=== PATIENT | male | born 1950 | race Caucasian/White ===

== ENCOUNTER 2020-01-22 14:59 | Inpatient (IN) | payer MEDICARE, OTHER ==
[2020-01-22 15:45] LABS: #Basophils 0.1 thou/uL (0.0-0.2); #Eosinphils 0.2 thou/uL (0.0-0.7); #Lymphocytes 1.9 thou/uL (1.20-3.40); #Monocytes 0.6 thou/uL (0.11-0.59); #Neutrophils 5.8 thou/uL (1.40-6.50); %Basophils 0.9 % (0.0-1.0); %Eosinophils 2.7 % (0.0-10.0); %Lymphocytes 21.8 % (21.0-51.0); %Neutrophils 67.6 % (42.0-75.0); Mean Corpuscular Volume 84.4 fL (78.0-98.0); Platelet Count 449 thou/uL (130-400); RBC Distribution Width 13.2 % (11.5-14.5); White Blood Cell (WBC) Count 8.6 thou/uL (4.8-10.8)
--- NOTE | 2020-01-22 15:46 | RAD ---
3 views lumbar spine: 01/22/2020 COMPARISON: None HISTORY: Back pain, prior surgery FINDINGS: There are cutaneous huong present. Multilevel posterior fusion hardware is noted with jazmin ateral pedicle screws present at the L2, L3, and L4 levels. There are S1 pedicle screws present and bilateral screws overlie bilateral sacroiliac joints. There appears to be and L5 pedicle screw on the left and a partially absent L5 pedicle screw on the right. There is multilevel disc space narrowing with degenerative endplate change. No evidence for hardware failure. No acute fracture is s een. Multilevel lower lumbar spine facet hypertrophic change. IMPRESSION: Multilevel postoperative and degenerative change within the lumbar spine as detailed nolan carroll
[2020-01-22 15:47] LABS: Bilirubin Negative (Negative); Blood, Urine Negative (Negative); Clarity Clear (Clear); Glucose, Urine (Dipstick) Normal (Negative); Ketone, Urine Negative (Negative); Leukocyte Negative Leu/uL (Negative); Nitrite Negative (Negative); Protein, Urine (Dipstick) Negative (Neg-Trace); Specific Gravity, Urine 1.018 (1.002-1.036); Urobilinogen Normal mg/dL (Less than 2)
[2020-01-22] MEDS ORDERED: Morphine 4 MG/ML VIAL ONE (15:51)
[2020-01-22] MEDS ORDERED: Ketorolac Tromethamine 30 MG/ML VIAL ONE (15:51)
[2020-01-22 15:59] LABS: ALT (SGPT) 15 U/L (8-55); AST (SGOT) 26 U/L (5-34); Albumin 3.6 g/dL (3.4-4.8); Alkaline Phosphatase 157 U/L (40-110); Anion Gap 13 mmol/L (10-20); BUN (Urea Nitrogen) 19 mg/dL (8.4-25.7); Bilirubin, Total 0.2 mg/dL (0.2-1.2); Calc. Creatinine Clearance 0 mL/min (70-130); Calcium 9.5 mg/dL (7.8-10.44); Carbon Dioxide 28 mmol/L (23-31); Chloride 101 mmol/L (98-107); Estimated GFR-MDRD 78; Glucose 125 mg/dL (80-115); Potassium 4.2 mmol/L (3.5-5.1); Protein, Total 6.6 g/dL (5.8-8.1); Sodium 138 mmol/L (136-145)
[2020-01-22] MEDS ORDERED: Lorazepam 2 MG/ML VIAL ONE (16:39)
--- NOTE | 2020-01-22 17:30 | PDOC.HHP ---
Hospitalist HPI - History of Present Illness Back pain History of Present Illness: PCP: Dr. Abelino Marshall The patient is a 69-year-old male with a past medical history significant for chronic back pain, CAD and Parkinson's disease that presents to the emergency department via EMS for the above complaint. The patient underwent back surgery revision for broken rods in his lumbar spine on 01/05/[address] Law with [facility] in [facility]. Then, he began inpatient rehab with [facility] on 01/14/20. The patient thought his rehab was going well, so he requested early discharge on Friday01/19/2020. The rehabilitation center recommended that he stay for approximately 1 to 2 weeks, however, the patient wanted to go home because of the holidays and he was feeling pretty good. The patient discharged with prescriptions for OxyContin, methocarbamol, and gabapentin for pain control. His spouse reports the day of discharge, the physical therapist worked him out "really, really hard". Then, he had to spend an hour in the car to drive home. His spouse believes this was very hard on him and basically wore him out. Also, she had to ration his pain medications because "they did not give me enough to last more than a couple of days". Therefore, he has gone 12 hours between doses for pain control.Since discharge, the patient has become more weak, so much so that he had to have a bedbath last night. Both the patient and his spouse feel that he needs to go back for more physical therapy, however, [facility] will not accept him back. Their plan is to call their neurosurgeon, who is affiliated with [facility], to see if he can get them into a different rehabilitation center. The patient and his spouse deny any fall or trauma since discharge. Denies any fever or chills. Denies any oozing or pain at his incision site. Denies any focal motor weakness to his extremities. Denies any urinary incontinence/retention. He is not on any blood thinners. No saddle anesthesia. The patient denies any chest pain, heart palpitations, lightheadedness or swelling to his lower extremities. Denies any cough, wheezing or shortness of breath. Denies any abdominal pain, nausea, vomiting, diarrhea. His last bowel movement was 4 days ago. He is on a regimen of milk of magnesia, Senokot as needed. Denies any dysuria or hematuria. ED Course: VITAL SIGNS Sat Jan 22, 2020 15:03 LOUISA Artis Denna BP: 147/74, Pulse: 86, Resp: 16, Temp: 98.1 (Oral), Pain: 8, O2 sat: 100, Time: 01/22/2020 15:03. VITAL SIGNS Sat Jan 22, 2020 16:02 LOUISA Amador Madison BP: 162/130, Pulse: 52, Resp: 17, Pain: 7, O2 sat: 100 on (Room Air), Time: 01/22/2020 16:02. VITAL SIGNS Sat Jan 22, 2020 17:04 LOUISA Amador Madison BP: 147/96, Pulse: 52, Resp: 20, Pain: 4, O2 sat: 98 on (Room Air), Time: 01/22/2020 17:04. Medications: Ativan injection 1 mg IV Push Given 16:43 01/22/2020 Toradol injection 30 mg IV Push Given 15:57 01/22/2020 morphine injection 4 mg IV Push Given 15:56 01/22/2020 sodium chloride 0.9 % intravenous 500 mL IV Fluid Infusion Given 15:28 01/22/2020 Hospitalist ROS - Review of Systems All other systems reviewed; all pertinent +/- noted in HPI/Subj - Medication Medications: oxyCODONE Sat Jan 22, 2020 16:45 LOUISA Amador Madison tablet : Strength - 10 mg : ORAL Patient Dose: every 6 hours prn. amantadine HCl Sat Jan 22, 2020 16:46 LOUISA Amador Madison capsule : Strength - 100 mg : ORAL Patient Dose: 3 times a day. atorvastatin Sat Jan 22, 2020 16:47 LOUISA Amador Madison tablet : Strength - 40 mg : ORAL Patient Dose: once a day. escitalopram oxalate Sat Jan 22, 2020 16:50 LOUISA Amador Madison tablet : Strength - 5 mg : ORAL Patient Dose: once a day. gabapentin Sat Jan 22, 2020 16:50 LOUISA Amador Madison tablet : Strength - 600 mg : ORAL Patient Dose: 2 times a day. lisinopril Sat Jan 22, 2020 16:51 LOUISA Amador Madison tablet : Strength - 20 mg : ORAL Patient Dose: 2 times a day. methocarbamol oral Sat Jan 22, 2020 16:51 LOUISA Amador Madison tablet : Strength - 500 mg : ORAL Patient Dose: 3 times a day. omeprazole Sat Jan 22, 2020 16:52 LOUISA Amador Madison capsule,delayed release(DR/EC) : Strength - 20 mg : ORAL Patient Dose: once a day (in the morning). rasagiline Sat Jan 22, 2020 16:54 LOUISA Amador Madison tablet : Strength - 1 mg : ORAL Patient Dose: Unknown. Allergies: Ceclor, Penicillins Hospitalist History - Past Medical History Source: patient, family, RN notes reviewed Cardiac: reports: CAD (X3 stents (1997)), HTN, NH, Hyperlipidemia FORMSTONE FITTER: reports: Other (Parkinson's disease) Gastrointestinal: reports: GERD Psych: reports: Depression - Past Surgical History Past Surgical History: reports: Other (CAD x3 stents (1997), multiple back jimenez rgeries, PM) - Family History Other Family History: Noncontributory to this case - Social History Smoking Status: Never smoker Tobacco Type: chewing tobacco Alcohol: reports: None Drugs: reports: none Living Situation: With Family Occupation: Retired Activity level: uses cane/walker - Exam General Appearance: NAD, awake alert. negative: ill appearing Eye: PERRL, anicteric sclera ENT: normocephalic atraumatic Neck: supple, symmetric Heart: no murmur, no gallops, no rubs, normal peripheral pulses Heart - other findings: Bradycardia Respiratory: CTAB, no wheezes, no rales, no ronchi, normal chest expansion, no tachypnea Gastrointestinal: soft, non-tender, non-distended, normal bowel sounds, no bruit, no guarding, no rigidity Extremities: no cyanosis, no edema Skin: no rashes (Incision site to lumbar spine clean dry intact. No bruising. Nontender to palpation. Tatiana intact. No bruising/hematoma) Neurological: cranial nerve grossly intact, no focal deficits. negative: hemiplegia, speech deficit Neurological - other findings: HSNE lumbar spine intact Psychiatric: normal affect, A&O x 3 Hospitalist Results - Labs Result Diagrams: 01/22/20 15:17 01/22/20 15:17 Lab results: WBC 8.6 thou/uL (4.8-10.8) 01/22/20 15:17 Hgb 13.0 g/dL (14.0-18.0) L 01/22/20 15:17 Hct 40.5 % (42.0-52.0) L 01/22/20 15:17 MCV 84.4 fL (78.0-98.0) 01/22/20 15:17 Plt Count 449 thou/uL (130-400) H 01/22/20 15:17 Neutrophils % 67.6 % (42.0-75.0) 01/22/20 15:17 Sodium 138 mmol/L (136-145) 01/22/20 15:17 Potassium 4.2 mmol/L (3.5-5.1) 01/22/20 15:17 Chloride 101 mmol/L (98-107) 01/22/20 15:17 Carbon Dioxide 28 mmol/L (23-31) 01/22/20 15:17 BUN 19 mg/dL (8.4-25.7) 01/22/20 15:17 Creatinine 0.96 mg/dL (0.7-1.3) 01/22/20 15:17 Glucose 125 mg/dL (80-115) H 01/22/20 15:17 Calcium 9.5 mg/dL (7.8-10.44) 01/22/20 15:17 Total Bilirubin 0.2 mg/dL (0.2-1.2) 01/22/20 15:17 AST 26 U/L (5-34) 01/22/20 15:17 ALT 15 U/L (8-55) 01/22/20 15:17 Alkaline Phosphatase 157 U/L (40-110) H 01/22/20 15:17 Serum Total Protein 6.6 g/dL (5.8-8.1) 01/22/20 15:17 Albumin 3.6 g/dL (3.4-4.8) 01/22/20 15:17 Urine Ketones Negative mg/dL (Negative) 01/22/20 15:17 Urine Blood Negative (Negative) 01/22/20 15:17 Urine Nitrite Negative (Negative) 01/22/20 15:17 Ur Leukocyte Esterase Negative Eulalia/uL (Negative) 01/22/20 15:17 - Radiology Interpretation Other Status: report reviewed by me Additional Comment: XR Lumbar Spine FINDINGS: There are cutaneous tatiana present. Multilevel posterior fusion hardware is noted with bilateral pedicle screws present at the L2, L3, and L4 levels. There are S1 pedicle screws present and bilateral screws overlie bilateral sacroiliac joints. There appears to be an L5 pedicle screw on the left and a partially absent L5 pedicle screw on the right. There is multilevel disc space narrowing with degenerative endplate change. No evidence for hardware failure. No acute fracture is seen. Multilevel lower lumbar spine facet hypertrophic change. IMPRESSION: Multilevel postoperative and degenerative change within the lumbar spine as detailed above. Hospitalist H&P A/P - Problem (1) Intractable low back pain Code(s): M54.5 - LOW BACK PAIN Status: Acute (2) CAD (coronary artery disease) Code(s): I25.10 - ATHSCL HEART DISEASE OF [place] CORONARY ARTERY W/O ANG PCTRS Status: Chronic (3) HTN (hypertension) Code(s): I10 - ESSENTIAL (PRIMARY) HYPERTENSION Status: Chronic (4) HLD (hyperlipidemia) Code(s): E78.5 - HYPERLIPIDEMIA, UNSPECIFIED Status: Chronic (5) Parkinsons disease Code(s): G20 - PARKINSON'S DISEASE Status: Chronic (6) GERD (gastroesophageal reflux disease) Code(s): K21.9 - GASTRO-ESOPHAGEAL REFLUX DISEASE WITHOUT ESOPHAGITIS Status: Chronic (7) Depression Code(s): F32.9 - MAJOR DEPRESSIVE DISORDER, SINGLE EPISODE, UNSPECIFIED Status: Chronic - Plan Plan: 69/M with [facility] s/p revision to lumbar spine presents for intractable back pain. Admit to medical floor, observation status. Expected length stay less than 2 mi dnights. Presented stable vital signs. XR lumbar spine no evidence of hardware failure. No acute fracture. Multilevel disc space narrowing with degenerative endplate changes. WBC 8.6 UA unremarkable CMP unremarkable #Intractable low back pain Upon assessment, pain well controlled s/p Toradol, Ativan, morphine. No neuro deficits. Continue home dose oxycodone 10 mg every 6 Continue home dose gabapentin 600 mg twice daily Continue methocarbamol 500 mg 3 times daily Morphine as needed breakthrough pain Consult PT #CAD Chronic, stable. Follow-up with PCP and neurosurgery to determine when to restart antiplatelet therapy. #Hypertension Takes lisinopril 20 mg twice daily at home. We will restart home medication when reconciled by nursing. #HLD Takes atorvastatin at home. We will restart home dose atorvastatin when reconciled by nursing. #Parkinson's disease Chronic, stable. Takes amantadine and rasagiline at home. Restart home medications when reconciled by nursing #GERD Takes omeprazole at home. We will start Protonix. #Depression Denies SI/HI. Takes Lexapro at home. We will restart home dose Lexapro. SCDs for DVT prophylaxis. Protonix for GI prophylaxis. Full code. Contact is TISH, spouse, . Discussed the case with Dr. Hilton.
[2020-01-22] MEDS ORDERED: Acetaminophen 325 MG TAB PO PRN (18:54)
[2020-01-22] MEDS ORDERED: Bisacodyl 5 MG TAB PO PRN (18:54)
[2020-01-22] MEDS ORDERED: Ondansetron ODT 4 MG TAB PO PRN (18:54)
[2020-01-22] MEDS ORDERED: Ondansetron PF 4 MG/2 ML Vial IVP PRN (18:54)
[2020-01-22] MEDS ORDERED: Calcium Carbonate 500 MG ChewTAB PO PRN (18:54)
[2020-01-22] MEDS ORDERED: Senokot S 8.6-50 MG TAB PO PRN (18:54)
[2020-01-22 20:05] VITALS: BMI 29.7
[2020-01-22] MEDS: Morphine 2 MG/ML VIAL SLOW IVP PRN (20:55)
[2020-01-22] MEDS: Gabapentin 300 MG CAP PO SCH (20:56)
[2020-01-22] MEDS: Methocarbamol 500 MG TAB PO SCH (21:03)
[2020-01-22] MEDS: oxyCODONE 5 MG TAB PO SCH (23:32)
[2020-01-23 06:24] LABS: #Eosinphils 0.3 thou/uL (0.0-0.7); #Lymphocytes 1.8 thou/uL (1.20-3.40); #Monocytes 0.6 thou/uL (0.11-0.59); #Neutrophils 4.1 thou/uL (1.40-6.50); %Basophils 0.4 % (0.0-1.0); %Eosinophils 3.8 % (0.0-10.0); %Lymphocytes 26.2 % (21.0-51.0); %Monocytes 9.3 % (0.0-10.0); %Neutrophils 60.4 % (42.0-75.0); Mean Corpuscular HGB CONC 31.8 g/dL (32.0-36.0); Mean Corpuscular Hemoglobin 27.1 pg (27.0-31.0); Mean Corpuscular Volume 85.2 fL (78.0-98.0); Platelet Count 430 thou/uL (130-400); RBC Distribution Width 13.2 % (11.5-14.5); Red Blood Cell (RBC) Count 4.79 mill/uL (4.70-6.10); White Blood Cell (WBC) Count 6.7 thou/uL (4.8-10.8)
[2020-01-23] MEDS: oxyCODONE 5 MG TAB PO SCH ×4 (06:27→23:35)
[2020-01-23 06:44] LABS: Anion Gap 13 mmol/L (10-20); BUN (Urea Nitrogen) 21 mg/dL (8.4-25.7); Calc. Creatinine Clearance 130 mL/min (70-130); Calcium 9.1 mg/dL (7.8-10.44); Carbon Dioxide 25 mmol/L (23-31); Chloride 104 mmol/L (98-107); Estimated GFR-MDRD Greater than 90; Glucose 93 mg/dL (80-115); Potassium 5.1 mmol/L (3.5-5.1); Sodium 137 mmol/L (136-145)
[2020-01-23] MEDS: Gabapentin 300 MG CAP PO SCH ×2 (09:30→21:26)
[2020-01-23] MEDS: Methocarbamol 500 MG TAB PO SCH ×3 (09:34→21:45)
[2020-01-23 10:58] LABS: SARS-CoV-2 MS2 Positive; SARS-CoV-2 N Gene Negative; SARS-CoV-2 S Gene Negative; SARS-CoV-2 by NAA Not Detected (NotDetected); SARS-CoV-2 orf1ab Negative
[2020-01-23] MEDS: Morphine 2 MG/ML VIAL SLOW IVP PRN (11:08)
[2020-01-23] MEDS ORDERED: oxyCODONE 5 MG TAB PO PRN (12:05)
--- NOTE | 2020-01-23 12:38 | PDOC.HOSPP ---
- Subjective Encounter Date: 01/23/20 Encounter Time: 12:25 Subjective: f/u for intractable back pain. s/p Lumbar fusion and recent inpt rehab stay. Unable to function at home and pain uncontrolled on home meds. No bowel or bladder incontinence. - Objective Vital Signs & Weight: Vital Signs (12 hours) Temp Pulse Resp BP Pulse Ox 01/23/20 11:46 98.1 F 68 16 185/80 H 98 01/23/20 07:19 98.3 F 58 L 16 130/72 98 01/23/20 03:41 98 F 52 L 16 166/68 H 97 Weight Weight 231 lb 11.187 oz I&O: 01/22/20 01/23/20 01/24/20 06:59 06:59 06:59 Intake Total 480 Output Total 650 Balance -170 Result Diagrams: 01/23/20 06:00 01/23/20 06:00 Additional Labs: Laboratory Tests 01/22/20 17:22 SARS-CoV-2 (PCR) Not Detected Radiology Reviewed by me: Yes (Lumbar x-ray - multi-level degenerative changes, hardware in place) Hospitalist ROS - Medication Medications: Active Medications Generic Name Dose Route Start Last Admin Trade Name Freq PRN Reason Stop Dose Admin Gabapentin 600 mg 01/22/20 21:00 01/23/20 09:30 Gabapentin 300 Mg Cap PO 600 mg BID MAURIZIO Administration Methocarbamol 500 mg 01/22/20 21:00 01/23/20 09:34 Methocarbamol 500 Mg Tab PO 500 mg TID MAURIZIO Administration Morphine Sulfate 2 mg 01/22/20 18:55 01/23/20 11:08 Morphine 2 Mg/Ml Vial SLOW IVP 2 mg Q4H PRN Administration breakthrough pain Oxycodone HCl 10 mg 01/22/20 23:59 01/23/20 06:27 Oxycodone 5 Mg Tab PO 10 mg Q6HR MAURIZIO Administration Pantoprazole Sodium 40 mg 01/23/20 09:00 01/23/20 09:31 Pantoprazole 40 Mg Tab PO 40 mg DAILY MAURIZIO Administration - Exam General Appearance: NAD, awake alert Eye: PERRL, anicteric sclera ENT: normocephalic atraumatic, no oropharyngeal lesions Neck: supple, symmetric, no JVD, no thyromegaly, no lymphadenopathy Heart: RRR, no gallops, no rubs, normal peripheral pulses Heart - other findings: S1, S2 Respiratory: CTAB, no wheezes, no rales, no ronchi, normal chest expansion, no tachypnea Gastrointestinal: soft, non-tender, non-distended, normal bowel sounds, no palpable masses Extremities: no cyanosis, no clubbing, no edema Skin: normal turgor Neurological: cranial nerve grossly intact, no new deficit Musculoskeletal: normal tone, generalized weakness Psychiatric: normal affect, A&O x 3 Hosp A/P (1) Intractable low back pain Code(s): M54.5 - LOW BACK PAIN Status: Acute Plan: s/p lumbar fusion, continue pain mgmt, increase Morphine Sulfate 4mg IV q4h prn, continue Oxycodone/Methocarbamol/Gabapentin, PT/OT, rehab screening (2) HTN (hypertension) Code(s): I10 - ESSENTIAL (PRIMARY) HYPERTENSION Status: Chronic Qualifiers: Hypertension type: essential hypertension Qualified Code(s): I10 - Essential (primary) hypertension Plan: Resume home BP regimen and monitor clinical response (3) Parkinsons disease Code(s): G20 - PARKINSON'S DISEASE Status: Chronic Plan: Resume home Sinemet, PT/OT for mobilization (4) CAD (coronary artery disease) Code(s): I25.10 - ATHSCL HEART DISEASE OF [place] CORONARY ARTERY W/O ANG PCTRS Status: Chronic Plan: Resume Lipitor/Lisinopril (5) Depression Code(s): F32.9 - MAJOR DEPRESSIVE DISORDER, SINGLE EPISODE, UNSPECIFIED Status: Chronic - Plan plan discussed w/ family, PT/OT, social media assistant, out of bed/ambulate, DVT proph w/SCDs Continue pain control regimen Increase Morphine Sulfate 4mg IV q4h prn Continue Oxycontin Continue Robaxin/Gabapentin Convert to inpt status Consult CM for inpt rehab screen Bowel regimen
[2020-01-23] MEDS ORDERED: Morphine 4 MG/ML VIAL SLOW IVP PRN (12:39)
[2020-01-23] MEDS ORDERED: CARBIDOPA PO SCH (16:00)
[2020-01-23] MEDS ORDERED: LEVODOPA PO SCH (16:00)
[2020-01-23] MEDS: Carbidopa/Levodopa 25-100 mg Tablet PO SCH ×3 (16:13→23:36)
[2020-01-24] MEDS: oxyCODONE 5 MG TAB PO SCH ×4 (05:16→23:23)
[2020-01-24] MEDS ORDERED: hydrALAZINE 20 MG/ML VIAL SLOW IVP SCH (06:00)
[2020-01-24] MEDS ORDERED: Non-Formulary Item 1 EACH (Rasagiline Mesylate 1 MG Tab) PO SCH (09:00)
[2020-01-24] MEDS ORDERED: Non-Formulary Item 1 EACH (Escitalopram Oxalate [Escitalopram Oxalate] 5 MG Tablet) PO SCH (09:00)
[2020-01-24] MEDS ORDERED: PIROXICAM 20 MG PO SCH ×2 (09:00)
[2020-01-24] MEDS ORDERED: Rasagiline Mesylate 1 MG PO SCH (09:00)
[2020-01-24] MEDS: Docusate 100 MG CAP PO SCH (09:16)
[2020-01-24] MEDS: Escitalopram Oxalate 10 mg Tablet PO SCH (09:16)
[2020-01-24] MEDS: Atorvastatin Calcium 40 MG TAB PO SCH (09:17)
[2020-01-24] MEDS: Carbidopa/Levodopa 25-100 mg Tablet PO SCH ×5 (09:18→23:24)
[2020-01-24] MEDS: Lisinopril 20 MG TAB PO SCH (09:18)
[2020-01-24] MEDS: Tamsulosin HCl 0.4 MG CAP PO SCH (09:18)
[2020-01-24] MEDS: Gabapentin 300 MG CAP PO SCH ×2 (09:19→20:30)
[2020-01-24] MEDS: Methocarbamol 500 MG TAB PO SCH ×3 (10:25→20:29)
--- NOTE | 2020-01-24 15:33 | PDOC.HOSPP ---
- Subjective Encounter Date: 01/24/20 Encounter Time: 15:15 Subjective: f/u for intractable LBP s/p lumbar fusion. Feels better overall. Awaiting coordination for outpt HH/PT/OT. Feels better overall. - Objective Vital Signs & Weight: Vital Signs (12 hours) Temp Pulse Resp BP BP BP Pulse Ox 01/24/20 12:40 98.5 F 82 16 173/83 H 98 01/24/20 09:18 172/79 H 01/24/20 08:35 99 01/24/20 07:48 98.4 F 68 16 172/79 H 99 01/24/20 05:58 72 202/83 H 01/24/20 05:18 97.9 F 72 18 178/75 H 202/83 H 96 Weight Weight 231 lb 11.187 oz I&O: 01/23/20 01/24/20 01/25/20 06:59 06:59 06:59 Intake Total 480 1510 Output Total 650 1650 Balance -170 -140 Result Diagrams: 01/23/20 06:00 01/23/20 06:00 Additional Labs: Laboratory Tests 01/22/20 17:22 SARS-CoV-2 (PCR) Not Detected Hospitalist ROS - Medication Medications: Active Medications Generic Name Dose Route Start Last Admin Trade Name Freq PRN Reason Stop Dose Admin Atorvastatin Calcium 40 mg 01/24/20 09:00 01/24/20 09:17 Atorvastatin Calcium 40 Mg Tab PO 40 mg DAILY MAURIZIO Administration Carbidopa/Levodopa 1 tab 01/23/20 16:00 01/24/20 12:42 Carbidopa/Levodopa 25-100 Mg Tablet PO 1 tab 5XD MAURIZIO Administration Docusate Sodium 100 mg 01/24/20 09:00 01/24/20 09:16 Docusate 100 Mg Cap PO 100 mg DAILY MAURIZIO Administration Escitalopram Oxalate 5 mg 01/24/20 09:00 01/24/20 09:16 Escitalopram Oxalate 10 Mg Tablet PO 5 mg DAILY MAURIZIO Administration Gabapentin 600 mg 01/22/20 21:00 01/24/20 09:19 Gabapentin 300 Mg Cap PO 600 mg BID MAURIZIO Administration Lisinopril 20 mg 01/24/20 09:00 01/24/20 09:18 Lisinopril 20 Mg Tab PO 20 mg DAILY MAURIZIO Administration Methocarbamol 500 mg 01/22/20 21:00 01/24/20 10:25 Methocarbamol 500 Mg Tab PO 500 mg TID MAURIZIO Administration Morphine Sulfate 4 mg 01/23/20 12:39 01/23/20 16:20 Morphine 4 Mg/Ml Vial SLOW IVP 4 mg Q4H PRN Administration breakthrough pain Oxycodone HCl 10 mg 01/22/20 23:59 01/24/20 12:42 Oxycodone 5 Mg Tab PO 10 mg Q6HR MAURIZIO Administration Pantoprazole Sodium 40 mg 01/23/20 09:00 01/24/20 09:18 Pantoprazole 40 Mg Tab PO 40 mg DAILY MAURIZIO Administration Tamsulosin HCl 0.4 mg 01/24/20 09:00 01/24/20 09:18 Tamsulosin Hcl 0.4 Mg Cap PO 0.4 mg DAILY MAURIZIO Administration - Exam General Appearance: NAD, awake alert Eye: PERRL, anicteric sclera ENT: normocephalic atraumatic, no oropharyngeal lesions Neck: supple, symmetric, no JVD, no thyromegaly, no lymphadenopathy Heart: RRR, no gallops, no rubs, normal peripheral pulses Heart - other findings: S1, S2 Respiratory: CTAB, no wheezes, no rales, no ronchi, normal chest expansion, no tachypnea Gastrointestinal: soft, non-tender, non-distended, normal bowel sounds, no palpable masses Extremities: no cyanosis, no clubbing, no edema Skin: normal turgor Neurological: cranial nerve grossly intact, no new deficit Musculoskeletal: normal tone, normal strength, no muscle wasting Psychiatric: normal affect, A&O x 3 Hosp A/P (1) Intractable low back pain Code(s): M54.5 - LOW BACK PAIN Status: Acute Plan: Improved, continue po pain meds, OOB/ambulate, HH with PT/OT (2) HTN (hypertension) Code(s): I10 - ESSENTIAL (PRIMARY) HYPERTENSION Status: Chronic Qualifiers: Hypertension type: essential hypertension Qualified Code(s): I10 - Essential (primary) hypertension (3) Parkinsons disease Code(s): G20 - PARKINSON'S DISEASE Status: Chronic (4) CAD (coronary artery disease) Code(s): I25.10 - ATHSCL HEART DISEASE OF [place] CORONARY ARTERY W/O ANG PCTRS Status: Chronic (5) Depression Code(s): F32.9 - MAJOR DEPRESSIVE DISORDER, SINGLE EPISODE, UNSPECIFIED Status: Chronic - Plan plan discussed w/ family, PT/OT, social work assistant, out of bed/ambulate, DVT proph w/SCDs Continue pain control regimen Morphine Sulfate 4mg IV q4h prn Continue Oxycontin Continue Robaxin/Gabapentin Convert to inpt status CM for HH with PT/OT Bowel regimen Likely home in am
[2020-01-24] MEDS: ALPRAZolam 0.5 MG TAB PO SCH ×3 (16:38→23:23)
[2020-01-24] MEDS: Lidocaine 5% Patch TD SCH (23:23)
[2020-01-25] MEDS: oxyCODONE 5 MG TAB PO SCH ×2 (05:46→11:42)
[2020-01-25] MEDS: Lisinopril 20 MG TAB PO SCH (09:28)
[2020-01-25] MEDS: ALPRAZolam 0.5 MG TAB PO SCH ×2 (09:28→11:42)
[2020-01-25] MEDS: Carbidopa/Levodopa 25-100 mg Tablet PO SCH ×2 (09:29→11:42)
[2020-01-25] MEDS: Escitalopram Oxalate 10 mg Tablet PO SCH (09:29)
[2020-01-25] MEDS: Tamsulosin HCl 0.4 MG CAP PO SCH (09:29)
[2020-01-25] MEDS: Gabapentin 300 MG CAP PO SCH (09:29)
[2020-01-25] MEDS: Methocarbamol 500 MG TAB PO SCH (09:29)
[2020-01-25] MEDS: Lidocaine 5% Patch TD SCH (09:30)
[2020-01-25] MEDS: Atorvastatin Calcium 40 MG TAB PO SCH (09:30)
[2020-01-25] MEDS: Docusate 100 MG CAP PO SCH (09:30)
[2020-01-25 11:28] VITALS: BP 137/64; TEMP 98.1
[2020-01-25] MEDS ORDERED: Lidocaine Patch Removal 1 EACH TOP SCH (21:00)
--- NOTE | 2020-01-26 03:03 | DIS ---
DATE OF ADMISSION: 01/23/2020 DATE OF DISCHARGE: 01/25/2020 DISCHARGE DIAGNOSES: 1. Intractable low back pain, improved. 2. Status post lumbar fusion. 3. Hypertension, stable. 4. Parkinson disease, chronic and stable. 5. Coronary artery disease, stable. 6. Depression, stable. CONSULTATIONS: None. PERTINENT LABORATORY AND X-RAY FINDINGS: Alkaline phosphatase 157. CBC within normal limits. Urinalysis negative. COVID-19 PCR not detected, 01/22/2020. Lumbar spine radiographs dated 01/22/2020, showed multilevel postoperative and degenerative changes. HOSPITAL COURSE: The patient was initially admitted after presenting with intractable low back pain in the context of recent lumbar spine fusion. The patient was initially placed on IV morphine sulfate, in addition continued oxycodone, gabapentin, Robaxin, and lidocaine patch. The patient clinically improved with supportive management with radiographic imaging showing postoperative changes without acute process or hardware failure. The patient was evaluated for return to inpatient rehabilitation, where the patient had recently discharged, however, was denied readmission after leaving against medical advice. The patient was evaluated for home health services including physical and occupational therapy and approved for the services. The patient received a prescription for hospital bed as well as rolling walker and will continue outpatient home health services after discharge. I have examined the patient at the time of discharge and discussed followup instructions. The patient verbalized understanding and agreement, ready for discharge on 01/25/2020. DISCHARGE MEDICATIONS: 1. Alprazolam 0.5 mg p.o. five times daily. 2. Azilect 1 mg p.o. daily. 3. Carbidopa levodopa 25/100 mg p.o. five times daily. 4. Colace 100 mg p.o. daily. 5. Lexapro 5 mg p.o. daily. 6. Flomax 0.4 mg p.o. daily. 7. Gabapentin 600 mg p.o. b.i.d. 8. Lipitor 40 mg p.o. daily. 9. Lisinopril 20 mg p.o. daily. 10. Omeprazole 20 mg p.o. daily. 11. Piroxicam 20 mg p.o. daily. 12. Robaxin 500 mg p.o. t.i.d. 13. Lidocaine patch 5% one patch transdermally daily. 14. Tramadol 100 mg p.o. q.i.d. FOLLOWUP: The patient may follow up with his primary care provider, Dr. Abelino Rios. The patient will follow up with Dr. Law with [facility] in [place], [place]. CONDITION ON DISCHARGE: Stable. ACTIVITY: Ad-mora. DIET: Heart healthy. CODE STATUS: Full. DISPOSITION: Home with [facility] including Physical and Occupational therapy, 01/25/2020. TIME SPENT: Total time preparing and coordinating discharge, 33 minutes. Job ID: [id number]
--- NOTE | 2020-01-26 06:20 | PQF ---
CLINICAL DOCUMENTATION CLARIFICATION FORM: Dear : Bradly Diaz Date / Time: 01/26/2020619 Please exercise your independent, professional judgment in responding to the clarification form. Clinical indicators are provided on the bottom of this form for your review In your clinical opinion based on clinical findings below, can you please identify the etiology of Low back pain if due to: Please check appropriate box(es): [ x ] Lumbar Disk Degenerative [ ] Acute Postoperative pain [ ] Other diagnosis, please specify [ ] Unable to determine Physician Signature: Date/Time: For continuity of documentation, please document condition throughout progress notes and discharge summary. Thank You. To be completed by CDI/Coding staff for physician review: Present Clinical Indicators - Signs / Symptoms / Labs Results and Location in Medical Record [X] Lumbar X-ray Impression: Multilevel postoperative and degenerative change within the lumbar spine Imaging Dr Greer 01/21 [X] Lumbar X-ray Impression: Multilevel disc space narrowing with degenerative endplate changes Imaging Dr Greer 01/21 [X] BP 184/76, Pulse 54, Resp 16, Temp 97.5 Vital signs 01/21 [X] Complain of back pain. Underwent back surgery on 01/05/2020 H&P p1 01/21 Carl WATER TESTER-C [X] Intractable low back pain H&P p6 01/21 Carl WATER TESTER-C Present Risk Factors Results and Location in Medical Record [X] 69 year-old Male H&P p1 01/21 Carl WATER TESTER-C [X] Chronic back pain H&P p1 01/21 Carl WATER TESTER-C [X] Parkinsons disease H&P p1 01/21 Carl WATER TESTER-C [X] HTN H&P p1 01/21 Carl WATER TESTER-C [X] Smoker H&P p1 01/21 Carl WATER TESTER-C [X] s/p back surgery H&P p6 01/21 Carl WATER TESTER-C Present Treatments Results and Location in Medical Record [X] IV Morphine 4 mg MAY 04 [X] IV Toradol 30 mg MAY 04 [X] Neurotin 600 mg oral MAY 04 CDS/Technical Training Specialist Signature: Omayra Marquezjodie Phone #: ext [phone] Date/Time: 01/26/2020619 This is a permanent part of the Medical Record [facility]
== END 2020-01-25 14:00 | disposition home health service (06) | DRG 552 ==
LOC: ERS 14:59 → SURG B 17:01 → OBSVTOIN 01-23 12:36
PROVIDERS: ADMIT Internal Medicine; ATTEND Internal Medicine
DX: M51.36 Other intervertebral disc degeneration, lumbar region (principal); I10 Essential (primary) hypertension; Z20.828 Contact with and (suspected) exposure to other viral communicable diseases; G20 Parkinson's disease; I25.10 Atherosclerotic heart disease of native coronary artery without angina pectoris; F32.9 Major depressive disorder, single episode, unspecified; G89.29 Other chronic pain; E78.5 Hyperlipidemia, unspecified; K21.9 Gastro-esophageal reflux disease without esophagitis; F17.220 Nicotine dependence, chewing tobacco, uncomplicated; Z98.1 Arthrodesis status; Z95.5 Presence of coronary angioplasty implant and graft; I25.2 Old myocardial infarction; Z79.899 Other long term (current) drug therapy
CPT/HCPCS: 36415; 72100; 80048; 80053; 81003; 85025; 87635; 96374; 96375; 96376; G0378; J0360; J1885; J2060; J2270; U0003

== ENCOUNTER 2020-10-26 | Day surgery (SDC) | payer MEDICARE, OTHER | END 2020-10-26 13:10 | disposition home or self-care (01) | PROC: 0TC48ZZ Extirpation of Matter from Left Kidney Pelvis, Via Natural or Artificial Opening Endoscopic (ICD-10-PCS; principal; 2020-10-26) | PROC: 0TC38ZZ Extirpation of Matter from Right Kidney Pelvis, Via Natural or Artificial Opening Endoscopic (ICD-10-PCS; 2020-10-26) | PROC: 0T788DZ Dilation of Bilateral Ureters with Intraluminal Device, Via Natural or Artificial Opening Endoscopic (ICD-10-PCS; 2020-10-26) ==

== ENCOUNTER 2021-01-03 12:40 | Outpatient (CLI) | payer MEDICARE | END 2021-01-03 12:41 | disposition home or self-care (01) | LOC: BICULT 12:40 | PROVIDERS: ATTEND Urology | DX: N20.0 Calculus of kidney (principal) | CPT/HCPCS: 76770 ==

== ENCOUNTER 2024-04-07 12:36 | Outpatient (CLI) | payer MEDICARE, OTHER | END 2024-04-07 12:37 | disposition home or self-care (01) | LOC: BICCT 12:36 | PROVIDERS: ATTEND Urology | DX: N20.2 Calculus of kidney with calculus of ureter (principal); N28.82 Megaloureter; I72.3 Aneurysm of iliac artery | CPT/HCPCS: 72192 ==

== ENCOUNTER 2024-04-16 14:29 | Outpatient (CLI) | payer MEDICARE ==
[2024-04-16 16:13] LABS: #Basophils 0.03 10x3/uL (0.0-0.2); %Basophils 0.4 % (0.0-1.0); %Eosinophils 3.1 % (0.0-10.0); %Lymphocytes 25.1 % (21.0-51.0); %Monocytes 10.8 % (0.0-10.0); %Neutrophils 60.2 % (42.0-75.0); Hematocrit 44.4 % (42.0-52.0); Hemoglobin 14.2 g/dL (14.0-18.0); Mean Corpuscular Hemoglobin 23.6 pg (27.0-31.0); Mean Corpuscular Volume 73.8 fL (78.0-98.0); Mean Platelet Volume 9.2 fL (7.4-10.4); Platelet Count 215 10x3/uL (130-400); RBC Distribution Width 16.7 % (11.5-14.5); Red Blood Cell (RBC) Count 6.02 mill/uL (4.70-6.10)
[2024-04-16 16:28] LABS: Bacteria/HPF None Seen HPF (None Seen); Bilirubin Negative (Negative); Blood, Urine Negative (Negative); Clarity Clear (Clear); Glucose, Urine (Dipstick) Normal (Negative); Ketone, Urine Trace mg/dL (Negative); Leukocyte Negative Leu/uL (Negative); Nitrite Negative (Negative); Protein, Urine (Dipstick) 20 mg/dL (Neg-Trace); RBC/HPF 0-3 HPF (0-3); Specific Gravity, Urine 1.031 (1.002-1.036); Squamous Epithelial None Seen HPF (0-3); Urobilinogen Normal mg/dL (Less than 2); WBC/HPF 0-3 HPF (0-3); pH, Urine 5.5 (5.0-9.0)
[2024-04-16 16:32] LABS: Anion Gap 11 mmol/L (10-20); BUN (Urea Nitrogen) 25 mg/dL (8.4-25.7); Calc. Creatinine Clearance 0 mL/min (70-130); Calcium 9.5 mg/dL (7.8-10.44); Carbon Dioxide 24 mmol/L (23-31); Chloride 105 mmol/L (98-107); Estimated GFR 81; Glucose 81 mg/dL (83-110); Potassium 4.2 mmol/L (3.5-5.1); Sodium 136 mmol/L (136-145)
== END 2024-04-16 14:30 | disposition home or self-care (01) ==
LOC: LABBT 14:29
PROVIDERS: ATTEND Urology
DX: Z01.818 Encounter for other preprocedural examination (principal); N20.1 Calculus of ureter
CPT/HCPCS: 71046; 80048; 81001; 85025; 87086; 93005; G0103; 93010